=== PATIENT | male | born 2000 | race Caucasian/White ===

== ENCOUNTER 2019-05-21 18:36 | Emergency (ER) | payer OTHER ==
[2019-05-21] MEDS ORDERED: NORCO 5-325 TA1 EACH PO (18:48)
[2019-05-21] MEDS ORDERED: IBUPROFEN600 MG PO (18:48)
== END 2019-05-21 19:11 | disposition home or self-care (01) ==
LOC: ED 18:36
DX: J11.1 Influenza due to unidentified influenza virus with other respiratory manifestations (principal); Z87.891 Personal history of nicotine dependence; Z79.891 Long term (current) use of opiate analgesic
CPT/HCPCS: 99283

== ENCOUNTER 2025-01-12 21:19 | Emergency (ER) | payer OTHER ==
[~2025-01-12] VITALS: Ht 185.4 cm; Wt 136.6 kg
[~2025-01-12 21:19] MED LIST: IBUPROFEN600 MG PO; NORCO 5-325 TA1 EACH PO
[2025-01-12] MEDS ORDERED: CEPHALEXIN500 M1 PO (21:42)
[2025-01-12] MEDS ORDERED: TRAMADOL HCL50 MG PO (21:42)
[2025-01-12] MEDS ORDERED: HYDROCODONE BIT/ACETAMINOPHEN 5/325 MG 1 TAB HOME.PACK PO ONE (21:45)
[2025-01-12] MEDS ORDERED: CEPHALEXIN MONOHYDRATE 500 MG HOME.PACK PO ONE (21:45)
[2025-01-12 21:50] VITALS: BP 132/87
== END 2025-01-12 21:50 | disposition home or self-care (01) ==
LOC: ED 21:19
DX: K04.7 Periapical abscess without sinus (principal); Z87.891 Personal history of nicotine dependence
CPT/HCPCS: 99282; A9270

== ENCOUNTER 2025-06-11 07:51 | Emergency (ER) | payer OTHER ==
[~2025-06-11] VITALS: Ht 185.4 cm; Wt 119.0 kg
[~2025-06-11 07:51] MED LIST changes: +CEPHALEXIN500 M1 PO; +TRAMADOL HCL50 MG PO
--- OUTSIDE RECORDS SUMMARY | 2025-06-11 07:52 | XMS ---
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 PHONE: [phone] -Paula- Dentist: Accounts Payable Technician [facility] PHONE: [phone] [facility]/Center: [facility] ([facility]) PHONE: [phone] BLAYNE CENTENO Current PHONE: [phone] Kassidy has no Care Guidelines for this patient. ESirena VISIT COUNT (12 MO.) 10 Tony Alanis ([place]) Yanira TOTAL 12 NOTE: Visits indicate total known visits. ED/UCC VISIT TRACKING (12 MO.) [facility] [facility] COMPLAINT: - VOMITING 06/09/2025 18:14 [facility] Navya CARNEY (Navya Mendosa) TYPE: Emergency DIAGNOSES: - Unspecified abdominal pain - Vomiting, unspecified - abd pain - Abdominal Pain - Emesis [facility] DIAGNOSES: - Unspecified abdominal pain - Unspecified abdominal pain - abd pain - Abdominal Pain - Emesis 03/22[facility]2025 09[facility] DIAGNOSES: - Hyperglycemia, unspecified - Left lower quadrant pain - Nausea with vomiting, unspecified - ABD Pain - Abdominal Pain 01/12/2025 21:[address] [facility] [place] TYPE: Emergency COMPLAINT: - TOOTH PAIN DIAGNOSES: - Other specified disorders of teeth and supporting structures - Periapical abscess without sinus - Personal history of nicotine dependence 08/31/2024 15:02 [facility] Navya CARNEY (Navya Mendosa) TYPE: Emergency DIAGNOSES: - Epigastric pain - abd pain - Abdominal Pain 06/28/2024 02:45 [facility] Navya CARNEY (Navya Mendosa) TYPE: Emergency DIAGNOSES: - Nausea with vomiting, unspecified - Persons encountering health services in other specified circumstances - Unspecified abdominal pain - abd pain - Abdominal Pain 06/27/2024 10:40 [facility] Navya Mendosa ROMMEL (Navya Mendosa) TYPE: Emergency DIAGNOSES: - Unspecified abdominal pain - abd pain - Abdominal Pain 06/25/2024 11:40 [facility] Navya Mendosa ROMMEL (Navya Mendosa) TYPE: Emergency DIAGNOSES: - Noninfective gastroenteritis and colitis, unspecified - Noninfective gastroenteritis and colitis, unspecified - Other chronic pain - Unspecified abdominal pain - Abdominal Pain - Emesis - vomiting 06/18/2024 12:56 [facility] Navya Mendosa ROMMEL (Navya Mendosa) TYPE: Emergency DIAGNOSES: - Generalized abdominal pain - abd pain - Abdominal Pain - Vomiting (Severe) 06/17/2024 23:47 [facility] Navya Mendosa ROMMEL (Navya Mendosa) TYPE: Emergency DIAGNOSES: - Constipation, unspecified - Lower abdominal pain, unspecified - Noninfective gastroenteritis and colitis, unspecified - abd pain - Abdominal Pain 06[facility]16/2024 14[facility]: [facility] DIAGNOSES: - Noninfective gastroenteritis and colitis, unspecified - abd pain - Abdominal Pain INPATIENT VISIT TRACKING (12 MO.) No inpatient visits to display in this time frame [email or web address]
[2025-06-11] MEDS ORDERED: OMEPRAZOLE40 MG PO (08:09)
[2025-06-11] MEDS ORDERED: ONDANSETRON ODT4 MG PO (08:11)
[2025-06-11] MEDS ORDERED: SODIUM CHLORIDE 0.9% 1,000 ML IV PRN (08:15)
[2025-06-11 08:26] LABS: BASOPHILS 0.2 % (0.2-1.2); EOSINOPHILS 0.2 % (0.8-7.0); LYMPHOCYTES 11.5 % (21.8-53.1); MCH 29.3 PG (25.7-32.2); MCHC 36.1 g/dL (32.3-36.5); MCV 81.2 fL (79.0-92.2); MONOCYTES 5.6 % (5.3-12.2); NEUTROPHILS 82.2 % (34.0-67.9); RBC 5.49 M/uL (4.63-6.08)
[2025-06-11 08:48] LABS: ALT (SGPT) 54.0 U/L (14-59); AST (SGOT) 69.0 U/L (15-37); GLOMERULAR FILTRATION RATE,EST 91.0 mL/min (>60); PROTEIN, TOTAL 8.2 g/dL (6.4-8.2); UREA NITROGEN 16.0 mg/dL (7-18)
[2025-06-11] MEDS ORDERED: SUCRALFATE1 GM PO (09:06)
[2025-06-11] MEDS ORDERED: ZOLOFT25 MG PO (09:09)
== END 2025-06-11 09:52 | disposition home or self-care (01) ==
LOC: ED 07:51
PROVIDERS: Emergency Medicine
DX: R11.10 Vomiting, unspecified (principal); Z87.891 Personal history of nicotine dependence; Z79.899 Other long term (current) drug therapy
CPT/HCPCS: 36415; 80053; 83690; 85025; 96361; 96374; 99284-25; J1790; J7030